=== PATIENT | male | born 1965 | race Caucasian/White ===

== ENCOUNTER 2025-04-05 07:45 | Day surgery (SDC) | payer OTHER ==
[2025-04-05] MEDS ORDERED: fentaNYL CITRATE 50 MCG/ML AMPUL IV PUSH ONE (17:30)
[2025-04-05] MEDS ORDERED: DIPHENHYDRAMINE HCL 50 MG/ML VIAL 1ML IV ONE ×2 (17:30)
[2025-04-05] MEDS ORDERED: MIDAZOLAM HCL 2 MG/2 ML VIAL IV ONE (17:30)
== END 2025-04-05 18:35 | disposition home or self-care (01) ==
LOC: AMB-ENDOS 07:45
PROVIDERS: ATTEND Internal Medicine
DX: D12.3 Benign neoplasm of transverse colon (principal); K63.5 Polyp of colon; K57.30 Diverticulosis of large intestine without perforation or abscess without bleeding; K64.4 Residual hemorrhoidal skin tags